=== PATIENT | female | born 1965 | race Asian ===

== ENCOUNTER 2021-12-02 08:10 | Emergency (ER) | payer OTHER ==
[~2021-12-02] VITALS: Ht 152.4 cm; Wt 73.0 kg
[2021-12-02 08:15] VITALS: BP 168/86
[2021-12-02] MEDS ORDERED: ACETAMINOPHEN 325MG TABLET PO ONE (08:45)
[2021-12-02] MEDS ORDERED: ACETAMINOPHEN 325MG TABLET PO NR (09:00)
[2021-12-02] MEDS ORDERED: ACET-2708 PO (10:25)
== END 2021-12-02 10:40 | disposition home or self-care (01) ==
LOC: ER 08:10
DX: S40.012A Contusion of left shoulder, initial encounter (principal); S70.02XA Contusion of left hip, initial encounter; S50.02XA Contusion of left elbow, initial encounter; S16.1XXA Strain of muscle, fascia and tendon at neck level, initial encounter; R03.0 Elevated blood-pressure reading, without diagnosis of hypertension; W01.190A Fall on same level from slipping, tripping and stumbling with subsequent striking against furniture, initial encounter; Y93.01 Activity, walking, marching and hiking; Y92.018 Other place in single-family (private) house as the place of occurrence of the external cause
CPT/HCPCS: 72170; 73030; 73080; 99284